=== PATIENT | male | born 1955 | race Two or more races ===

== ENCOUNTER 2025-03-16 13:38 | Outpatient (AMB) | payer MEDICARE, MEDICAID, SELFPAY ==
--- NOTE | 2025-03-16 13:41 | A.OFFPC_ITS ---
Vital Signs 03/16/25 13:42 03/16/25 14:28 Height 5 ft 10 in Weight 263 lb 6 oz BMI 37.8 BP 142/78 H 120/70 Blood Pressure Location Rt brachial Lt brachial Position Sitting Sitting Pulse 65 Pulse Source Pulse Oximeter Temp 97.0 F Temp Source Temporal Artery Scan Pulse Oximetry (%) 98 Oxygen Delivery Method Room Air Intake Visit Reasons: establish care Accompanied by: Daughter Allergies No Known Allergies Allergy (Verified 03/16/25 13:52) Medication List - Last Reconciled 03/16/25 by Valery Moreno PA-C amlodipine-atorvastatin 10-40 mg 1 tab PO DAILY aspirin (Adult Aspirin Regimen) 81 mg PO DAILY omeprazole 20 mg PO BID rosuvastatin 5 mg PO DAILY tadalafil (Cialis) 10 mg PO DAILY PRN tamsulosin 0.4 mg PO DAILY valsartan 40 mg PO DAILY Tobacco use date assessed: 03/16/25 Fall risk assessment: 2 + Falls in past year Last assessed Fall Risk: 03/16/25 Dental Screening Dental Screen Date: 03/16/25 Did you have a dental visit in the last 12 months?: No Did you have a dental problem in the last 6 months where you did not have access to dental care?: No Was dental information given to patient?: Patient has dentist HPI establish care HPI Details 70-year-old man coming to the office wit h the 1st time. Presenting for a comprehensive evaluation of multiple chronic conditions and management of current symptoms.The patient has a history of high blood pressure, managed with medication. No recent hospitalizations or complications reported. The patient is under psychiatric care for anxiety and depression, with medications prescribed by a psychiatrist. He reports feeling overwhelmed due to recent family losses and personal stressors. The patient is taking tamsulosin and tadalafil for prostate management and has regular follow-ups with a urologist. The patient experiences numbness and pain in his hands, particularly at night. A nerve conduction study has been ordered to confirm the diagnosis. The patient uses a CPAP machine for sleep apnea management. No recent changes in symptoms or equipment reported. The patient experiences morning cough and phlegm, likely due to acid reflux. He is advised to take omeprazole twice daily to manage symptoms. He was previously seen by his last PCP 5 months ago and has a urology appointment coming up in April. He also follows with orthopedics in his seeing them in March for neck and back pain. He currently uses Tylenol and Voltaren as well as heating pads for pain relief of the neck and back pain. He also [place] [facility] [place] His pharmacy is [facility] Surgical History Hx of colonoscopy H/O hernia repair History of total knee replacement Family History Mother Hypertension Mental health disorder Father Hypertension Mental health disorder Social History Household Members: Family Housing: House Alcohol intake: current Alcohol intake frequency: a few times a week Patient Tobacco Use Status: Former Tobacco user e-Cigarette/Vaping Use: Never Used service: No Current occupational status: retired Cognitive needs: Yes (cane) Hearing needs: No Vision needs: Yes Questionnaire PHQ-9 Over the last 2 weeks, how often have you been bothered by any of the following problems? 1. Little interest or pleasure in doing things: nearly every day 2. Feeling down, depressed, or hopeless: nearly every day 3. Trouble falling or staying asleep, or sleeping too much: nearly every day 4. Feeling tired or having little energy: nearly every day 5. Poor appetite or overeating: nearly every day 6. Feeling bad about yourself - or that you are a failure or have let yourself or your family down: more than half the days 7. Trouble concentrating on things, such as reading the newspaper or watching television: nearly every day 8. Moving or speaking so slowly that other people could have noticed. Or the opposite - being so fidgety or restless that you have been moving around a lot more than usual: nearly every day 9. Thoughts that you would be better off or of hurting yourself in some way: not at all Total score: 23 Depression Screening Interpretation: Positive Depression Screening Follow-up: Existing condition and In treatment Depression Screening Done: Yes 53994 - PHQ-9 Billing: Yes Source: Developed by Drs. Jae Gamble, Thelma Dunham, Cesar Andrew and colleagues, with an educational ralph from [employer]. Thrive Questionnaire Date Thrive assessed: 03/16/25 I am a: Patient What is your living situation today?: I have a steady place to live Within the past 12 months, did the food you bought not last and you didn't have the money to get more?: Never true Within the past 12 months, did you worry whether your food would run out before you got money to buy more?: Never true Do you have trouble paying for medicines?: No Do you have trouble getting transportation to medical appointments?: No Do you have trouble paying your heating and electricity bill?: No Do you have trouble taking care of your child, family member or friend?: No Do you have trouble with day-to-day activities such as bathing, preparing meals, shopping, managing finances, etc.?: No Are you currently unemployed and looking for a job?: No Are you interested in more education?: No Currently or been in a relationship where the following occur: No concerns reported THRIVE Score: 0 AUDIT C Alcohol Use Questionnaire (AUDIT-C) 1. How often do you have a drink containing alcohol?: 2-3 times a week 2. How many drinks containing alcohol do you have on a typical day when you are drinking?: 1 or 2 3. How often do you have six or more drinks on one occasion?: Never Total Score: 3 Score Reviewed/Action Taken: Yes KADE-7 AMB Questionnaire KADE-7 Date KADE - 7 assessed: 03/16/25 Feeling nervous, anxious, or on edge: 3 = Nearly every day Not being able to stop or control worryin = Nearly every day Worrying too much about different things: 3 = Nearly every day Trouble relaxin = Nearly every day Being so restless that it is hard to sit still: 3 = Nearly every day Becoming easily annoyed or irritable: 3 = Nearly every day Feeling afraid as if something awful might happen: 3 = Nearly every day Total KADE-7 score (0-4 normal; 5-9 mild; 10-14 moderate; 15-21 severe): 21 Source: Developed by Drs. Jae Gamble, Thelma Dunham, Cesar Andrew and colleagues, with an educational ralph from [employer]. KADE-7 Assessment Billing KADE-7 Assessment Tool: KADE-7 Assessment 54720 (See's a psychiatrist ) Review of Systems Const Denies chills, Denies fever(s), Denies headache(s) and Denies poor appetite Eyes Reports no additional complaints ENT Denies dizziness and Denies headache(s) Card Denies chest pain, Denies syncope, Denies edema, Denies irregular heart rhythm, Denies lightheadedness and Denies dyspnea Resp Reports cough and Denies dyspnea GI Denies abdominal pain, Denies diarrhea, Denies nausea and Denies vomiting Reports no additional complaints Musc Details: neck and back pain Reports no additional complaints and Denies abnormal gait Skin/Breast Reports system reviewed and no additional complaints, except as documented Neuro Denies abnormal gait, Denies dizziness, Denies syncope and Denies headache(s) Psych Reports no additional complaints Physical exam (Primary Care) Vital Signs: Last Vital Signs Temp 97.0 F 03/16/25 13:42 Pulse 65 03/16/25 13:42 BP 120/70 03/16/25 14:28 Pulse Ox 98 03/16/25 13:42 Oxygen Delivery Method Room Air 03/16/25 13:42 BMI result Body Mass Index 37.8 Tobacco/Smoking Status: Tobacco use Status Tobacco use date assessed 03/16/25 03/16/25 13:46 Patient Tobacco Use Status Former Tobacco user 03/16/25 13:48 e-Cigarette/Vaping Use Never Used 03/16/25 13:48 PHQ-9: PHQ-9 Score PHQ-9: Total score 23 03/16/25 14:09 Depression Screening Interpretation: Positive Depression Screening Follow-up: Existing condition and In treatment Thrive Assessment: Date of Thrive Assessment Date Thrive assessed 03/16/25 03/16/25 13:47 Currently or been in a relationship where the following occur: No concerns reported Const General: cooperative, healthy appearing, comfortable and no acute distress Orientation/consciousness: patient oriented x3 HENMT Head: Yes normocephalic Ears: hearing grossly normal bilaterally General nose exam: Normal external nose present Eyes General: appearance normal, both eyes and all related structures Conjunctivae: conjunctivae normal Neck Neck: Yes full ROM and Yes no lymphadenopathy Resp Effort & Inspection: normal respiratory effort Auscultation: clear to auscultation bilaterally, no crackles, no rales, no rhonchi and no wheezes Cardio Rate: regular rate Rhythm: regular rhythm Skin General skin exam: no rashes or lesions noted Neuro General: patient oriented x3 Gait exam (Neuro): Normal gait present Extrem General: Yes normal to inspection, Yes full ROM and No edema Psych Affect: normal affect Attitude: cooperative Insight: Good insight present (Psych) Judgement: Good judgement present (Psych) Coding Level of Care Code New Pt Level 4 (15719) Diagnoses Anxiety F41.9 Depression F32.A Hypertension I10 Nail deformity L60.8 BPH (benign prostatic hyperplasia) N40.0 Back pain M54.9 Neck pain M54.2 Obstructive sleep apnea G47.33 Numbness and tingling in both hands R20.0; R20.2 Obesity (BMI 30-39.9) E66.9 GERD (gastroesophageal reflux disease) K21.9 Additional Codes KADE-7 Assessment Billing - KADE-7 Assessment Tool: KADE-7 Assessment 55167 ([id number]) PHQ-9 - 68756 - PHQ-9 Billing: Yes ([id number]) Assessment & Plan Assessment & Plan (1) Anxiety: Comment: Dr. Moore Code(s): F41.9 - Anxiety disorder, unspecified Category: Medical Plan: Patient is currently following with a psychiatrist and a counselor for management of his anxiety and depression. He is on multiple different medications for these concerns and is unsure of the names. Plan to reach out to the pharmacy to obtain the medications (2) Depression: Code(s): F32.A - Depression, unspecified Category: Medical Plan: See above (3) Hypertension: Code(s): I10 - Essential (primary) hypertension Category: Medical Plan: Continue on current blood pressure medication. Avoid salt intake and encourage healthy diet and regular exercise. We will reach out to the pharmacy to confirm the doses and prescriptions he is on (4) Nail deformity: Code(s): L60.8 - Other nail disorders Category: Medical Plan: Patient reporting multiple nail deformities and requesting referral to Dermatology which was placed today (5) BPH (benign prostatic hyperplasia): Code(s): N40.0 - Benign prostatic hyperplasia without lower urinary tract symptoms Category: Medical Plan: Patient is currently following with Urology for BPH and on tamsulosin and tadalafil. Continue to follow with Urology (6) Back pain: Code(s): M54.9 - Dorsalgia, unspecified Category: Medical Plan: Patient complaining of back pain advised to use Tylenol and heating pads as needed for pain and follow up with Orthopedics as scheduled (7) Neck pain: Code(s): M54.2 - Cervicalgia Category: Medical Plan: Patient complaining of neck pain and is currently following with orthopedics for this concern. (8) Obstructive sleep apnea: Comment: [facility] [place] Code(s): G47.33 - Obstructive sleep apnea (adult) (pediatric) Category: Medical Plan: Uses CPAP faithfully at least 4 hours a night and benefits from this therapy. (9) Numbness and tingling in both hands: Code(s): R20.0 - Anesthesia of skin; R20.2 - Paresthesia of skin Category: Medical Plan: Patient reporting numbness and tingling in bilateral hands and pain in bilateral thumbs. Plan to obtain upper extremity EMG bilaterally to rule out carpal tunnel. Recommended use of wrist splints at nighttime (10) Obesity (BMI 30-39.9): Code(s): E66.9 - Obesity, unspecified Category: Medical Plan: Healthy diet and regular exercise is encouraged. (11) GERD (gastroesophageal reflux disease): Code(s): K21.9 - Gastro-esophageal reflux disease without esophagitis Category: Medical Plan: Avoid trigger foods such as citrus, tomato products, soda, caffeine, spicy foods and other foods that may be irritating to your stomach. Avoid laying flat 3-4 hours after eating and elevate the head of the bed 30 degrees to prevent acid from moving into the esophagus. Patient continues to have acid reflux symptoms at nighttime plan to increase omeprazole to 20 mg b.i.d. Plan The patient will continue management of essential hypertension with current medications, and blood pressure will be monitored regularly. For anxiety and depression, the patient will maintain psychiatric follow-ups and consider medication adjustments as needed. The management of benign prostatic hyperplasia will continue with tamsulosin and tadalafil, with regular urology consultations. For knee replacement follow-up, the patient will continue orthopedic consultations and address neck pain with child care development specialist. A nerve conduction study is ordered to evaluate carpal tunnel syndrome, and wrist splints are recommended for nighttime use. Sleep apnea management will continue with CPAP therapy. Gastroesophageal reflux disease will be managed with omeprazole, taken twice daily. The patient will receive a referral to a sales expert for annual evaluation and will be advised on lifestyle modifications to reduce acid reflux symptoms. This note was constructed using voice recognition software. While every effort has been made to ensure accuracy and centerless grinder set up operator, still areas may have been included sometimes these areas may affect the content or meeting of the given symptoms. Total time spent caring for the patient today was 30 minutes. This includes time spent before the visit reviewing the chart, time spent during the visit, and time spent after the visit and documentation. Patient was informed and verbally consented to the use of an ambient scribe for clinic note documentation during this visit. Orders: Orders NE electromyogram (EMG) 03/16/25 R20.0 - Anesthesia of skin, R20.2 - Paresthesia of skin Lipid Panel 03/16/25 Z13.220 - Encounter for screening for lipoid disorders PSA, Ultra Sensitive 03/16/25 N40.0 - Benign prostatic hyperplasia without lower urinary tract symptoms, Z00.00 - Encounter for general adult medical examination without abnormal findings Vitamin B12 and Folate 03/16/25 E66.9 - Obesity, unspecified, Z13.21 - Encounter for screening for nutritional disorder NE nerve conduction velocity 03/16/25 R20.0 - Anesthesia of skin, R20.2 - Paresthesia of skin Complete Blood Count Auto Diff 03/16/25 E66.9 - Obesity, unspecified, Z00.00 - Encounter for general adult medical examination without abnormal findings Comprehensive Met. Panel 03/16/25 E66.9 - Obesity, unspecified, Z00.00 - Encounter for general adult medical examination without abnormal findings Vitamin D 25-OH Total 03/16/25 E66.9 - Obesity, unspecified, Z13.21 - Encounter for screening for nutritional disorder TSH reflex Free T4 03/16/25 Z13.29 - Encounter for screening for other suspected endocrine disorder Referrals Chiropractic Referral M54.2 - Cervicalgia, M54.9 - Dorsalgia, unspecified Optometry Referral I10 - Essential (primary) hypertension, Z00.00 - Encounter for general adult medical examination without abnormal findings Dermatology Referral L60.8 - Other nail disorders Medications: New omeprazole 20 mg PO BID 60 caps 0RF
[2025-03-16 13:42] VITALS: BP 142/78; PULSE 65; TEMP 36.1; O2SAT 98; BMI 37.8
--- OUTSIDE RECORDS SUMMARY | 2025-03-16 13:49 | XMS_ITS ---
Author Name [facility] Organization Unknown Encounters Encounter Type Encounter Reason Primary Diagnosis Location Date Ambulatory Encounter for immunization Counts include 234 beds at the [facility] 10/23/2021 Care Team Organization Name Specialty Phone Email Start Date End Da te [facility] 05/28/2022 [facility] Gudelia Elizabeth [facility] 202103/14/2024 [facility] GUDELIA ELIZABETH Primary Care 202110/23/2021
--- OUTSIDE RECORDS SUMMARY | 2025-03-16 13:49 | XMS_ITS | Encounter Summary ---
Author Organization [facility] Address [address] [place] [address] Care Team Providers Care Pest Control Specialist Name Role Phone Lalita Wallace NP Primary Care Provider [phone] Encounter Details Date Type Department Care Team (Late st Contact Info) Description 08/23/2024 Lab Requisition [facility] - Main Lab [address] [facility] [place] [phone] Manny Burger PA [address] [place] [phone] Benign essential microscopic hematuria Social History Tobacco Use Types Packs/Day Years Used Date Smoking Tobacco: Never Assessed Sex and Gender Information Value Date Recorded Sex Assigned at Male 06/30/2024 12:15 PM EST Legal Sex Male 11:01 AM EDT Gender Identity Male 06/30/2024 12:15 PM EST Sexual Orientation Straight 06/30/2024 12 :15 PM EST documented as of this encounter Plan of Treatment Not on file documented as of this encounter Procedures Procedure Name Priority Date/Time Associated Diagnosis Comments AP OUTSIDE CONSULT Routine 08/22/2024 12 :00 AM EST Benign essential microscopic hematuria documented in this encounter Results * Anatomic pathology outside consult (08/22/2024 12:00 AM EST) Final Diagnosis A. Urine, Voided, ([id number]): Negative for high grade urothelial carcinoma. 09/05/2024 2:44 PM EST [facility] Clinical Information Benign essential microscopic hematuria R31.1 Urine cytology with reflex [facility] ([facility]) 09/05/2024 2:44 PM EST [facility] Gross Description A. Urine, Voided, ([id number]): Received is one ThinPrep slide for cytology. 09/05/2024 2:44 PM EST [facility] Disclaimer Unless otherwise specified, all tissue is 10% NB formalin fixed and paraffin embedded. Technical pathology services provided by [facility] at [address], [place] [address] (CLIA #[id number]/Sa fany Arreola MD, Small Business Sales Representative) 09/05/2024 2:44 PM EST [facility] Tissue Urine specimen from urethra / Unknown 08/22/2024 08/23/2024 4:00 PM EST us Manny [facility] PATHOLOGY ORDERAB LES Final Result [facility] [address] [place] [address], documented in this encounter Visit Diagnoses Diagnosis Benign essential microscopic hematuria documented in this encounter Care Teams Pest Control Specialist Relationship Specialty Start Date End Date Lalita Wallace NP [address] [place] [address] [place] [address] PCP - General 06/05/23 documented as of this encounter
--- OUTSIDE RECORDS SUMMARY | 2025-03-16 13:49 | XMS_ITS | Clinical Summary ---
Author Organization [facility] Address [address] [place] [address] Care Team Providers Care Lump Receiver Name Role Phone Anais Dave APRN Primary Care Provider [phone] Allergies No known active allergies Social History Tobacco Use Types Packs/Day Years Used Date Smoking Tobacco: Never Assessed Sex and Gender Information Value Date Recorded Sex Assigned at Not on file Legal Sex Male 1:30 PM EDT Gender Identity Not on file Sexual Orientation Not on file Plan of Treatment Health Maintenance Due Date Last Done Comments Hepatitis C Virus Screening 1955 DTaP/Tdap/Td Vaccines (1 - Tdap) 1974 Colonoscopy 02/19/2000 Pneumococcal Vaccines 50+ (1 of 1 - PCV) 2005 Zoster (Shingles) Vaccine (1 of 2) 2005 COVID-19 Vaccine ( - 2023-2 5 season) 2024 Influenza Vaccine 02/24/2025 RSV Vaccine 60 years and old er and Patients (1 - 1-dose 75+ series) 2030 Hepatitis B Vaccines Aged Out No long er eligible based on patient's age to complete this topic [place] [address] Care Teams Lump Receiver Relationship Specialty Start Date End Date Anais Dave APRN [address] [facility] [address] [place] [address] PCP - General 03/11/16
--- OUTSIDE RECORDS SUMMARY | 2025-03-16 13:49 | XMS_ITS | Clinical Summary ---
Author Organization [facility] Address [address] [place] [address] Care Team Providers Care [employer] Name Role Phone Unavailable Primary Care Provider Unavailabl e Allergies Active Allergy Reactions Criticality Noted Date Comments No Known Allergies 01/20/2014 Medications biotin 5 mg capsule Take by mouth. Activ e DOCOSAHEXANOIC ACID/EPA (FISH OIL ORAL) Take by mouth. Activ e lactulose 20 gram/30 mL oral solution Take by mouth. 8 Active multivitamin (THERAGRAN) tablet Take by mouth. Activ e diclofenac sodium (VOLTAREN) 1 % gelIndications:C hronic knee pain, unspecified laterality Apply 2 g topically 4 (four) times a day. 100 g 2 8 Active fluticasone furoate-vilanter oL (Breo Ellipta) 100-25 mcg/dose blister with device inhaler Inhale 1 inhalations daily. 60 each 11 0 Active fluticasone propionate (FLONASE) 50 mcg/actuation nasal spray INSTILL 2 SPRAYS IN EACH NOSTRIL ONCE A DAY 16 g 2 0 Active tamsulosin (FLOMAX) capsule TAKE ONE CAPSULE (0.4MG TOTAL) BY MOUTH EVERY DAY 1/2 HOUR FOLLOWING THE SAME MEAL EACH DAY. 90 capsule 3 0 Active Linzess 145 mcg capsule capsuleIndicatio ns:Constipation, unspecified constipation type TAKE ONE CAPSULE (145MCG TOTAL) BY MOUTH DAILY. 90 capsule 1 0 Active amlodipine-olmes laurie (ARNULFO) 10-40 mg per tabletIndication s:Essential hypertension Take 1 tablet by mouth daily. 90 tablet 1 0 Active Active Problems Problem Noted Date Diagnosed Date Trigger finger, left middle finger 02/10/2020 Assessment & Plan (02/10/2020 9:35 AM EDT): He is having left hand middle finger episodes of tightness and the finger getting stuck. I have referred him to orthopedics for possible steroid injection. Medication side effect 02/10/2020 Myalgia 02/10/2020 Obstructive sleep apnea 10/25/2019 Assessment & Plan (10/25/2019 4:14 PM EDT): The patient is not interested in treating his sleep apnea. He did not tolerate CPAP. Recommendations: 1. Follow-up on an as-needed basis 2. Obtain fluticasone nasal spray from his PCP 3. I am available to him in the future if he decides he would like to treat his sleep apnea Smoking 04/24/2019 Assessment & Plan (04/24/2019 8:36 PM EDT): Patient encouraged to quit tobacco use. More than 6 minutes of this visit was spent in smoking cessation counseling. We discussed the health risks of continued smoking as well as several methods useful in quitting. Tobacco replacement products were discussed. Wheezing 04/24/2019 Assessment & Plan (04/24/2019 8:37 PM EDT): Albuterol MDI given encourage patient to take 2 puffs every 4 hours as needed for cough wheezing or shortness of breath. Skin mole 04/24/2019 Assessment & Plan (04/24/2019 8:37 PM EDT): Skin mole on left facial cheek. Referral to Derm given Acute bilateral low back pain without sciatica 0 04/24/2019 Assessment & Plan (04/24/2019 8:44 PM EDT): I have encouraged him to stretch prior to activities. I have given him handouts on back stretches and exercises. He got a referral to PT from the orthopedic. I have encouraged him to use either Motrin or Tylenol for discomfort. Applying heat may help with discomfort as well BMI 38.0-38.9,adult 06/02/2018 Mixed hyperlipidemia 06/02/2018 Assessment & Plan (02/10/2020 9:37 AM EDT): Lipid abnormalities are improving with treatment. Patient complaining of side effects of myalgia from Lipitor. I have discontinued this and started him on Crestor 5 mg at his request. We will recheck his lipid labs in 4 months. Lipids will be reassessed 4 months. Assessment & Plan (04/24/2019 8:37 PM EDT): Lipid medications refilled. I have ordered repeat labs. Heartburn 06/02/2018 Gastroesophageal reflux disease 06/02/2018 Osteoarthritis of knee 02/16/2018 S/P total knee arthroplasty, right 02/15/2018 Acquired spondylolisthesis 10/30/2014 Spinal stenosis of lumbar region 10/30/2014 Benign prostatic hyperplasia 05/11/2014 Assessment & Plan (04/24/2019 8:37 PM EDT): Medications refilled Impotence of organic origin 10/04/2012 Resolved Problems Problem Noted Date Diagnosed Date Resolved Date Upper respiratory infection with cough and congestion 06/02/2018 11/15/2024 Pre-operative exam 02/16/2018 Assessment & Plan (02/16/2018 8:44 PM EDT): Pt is considered low risk based on well controlled HTN and HLD, ekg within normal limits, no signs of ischemia, NSR. He is cleared for surgery Urinary symptom or sign 10/04/201210/26 Immunizations Immunization Administration Dates Next Due COVID-19 MRNA NEGRA (PFIZER) 10/23/2021 COVID-19 mRNA (PFIZER) 12/13/2020,11/22/2020 Influenza Vaccine 65y and older 06/25/2020 Meningococcal MCV4P 01/21/2019 Pneumococcal Conjugate PCV-13 06/25/2020 Pneumococcal Polysaccharide PCV-23 11/28/2015 Tdap 07/13/2014 Family History Medical History Relation Comments Heart disease Father Heart disease Mother Relation Status Comments Father Mother Social History Tobacco Use Types Packs/Day Years Used Date Smoking Tobacco: Former Smokeless Tobacco: Never Alcohol Use Standard Drinks/Week Comments Yes 0 (1 standard drink = 0.6 oz pur e alcohol) Sex and Gender Information Value Date Recorded Sex Assigned at Not on file Legal Sex Male 11:11 AM EST Gender Identity Not on file Sexual Orientation Not on file Last Filed Vital Signs Vital Sign Reading Time Taken Comments Blood Pressure 125/76 06/25/2020 11:49 AM EST Pulse 66 06/25/2020 11:49 AM EST Temperature 36.4 C (97.5 F) 06/25/2020 11:49 AM EST Respiratory Rate 20 06/25/2020 11:4 9 AM EST Oxygen Saturation 99% 06/25/2020 11: 49 AM EST Inhaled Oxygen Concentration - - Weight 114 kg (250 lb 4.8 oz) 0 11:49 AM EST with shoes Height 174 cm (5' 8.5 ) 06/25/2020 11:4 9 AM EST with shoes Body Mass Index 37.5 06/25/2020 11:49 AM EST Plan of Treatment Health Maintenance Due Date Last Done Comments CT Colonography 1955 FIT-DNA (Cologuard) 1955 FIT 1955 FOBT 1955 Flex Sigmoidoscopy - 5y 1955 HIV Screening 1955 Zoster Vaccines (1 of 2) 2005 Colonoscopy 08/08/2023 08/08/2013 (Done (Data in HDA)) Colorectal Cancer Screening 08/08/2023 COVID-19 Vaccine (4 - 2023-2 5 season) 2024 10/23/2021, 12/13/2020, 11/22/2020 DTaP,Tdap,and Td Vaccines (2 - Td or Tdap) 07/13/2024 07/13/2014 Influenza Vaccine (#1) 2025 06/25/2020 Pneumococcal Vaccine, 50+ Years (3 of 3 - PCV20 or PCV21) 06/25/2025 06/25/2020, 11/28/2015 Meningococcal Vaccine Aged Out 01/21/2019 No joel damian eligible based on patient's age to complete this topic HPV Vaccines Aged Out No longer eligi ble based on patient's age to complete this topic Hepatitis A Vaccines Aged Out No long er eligible based on patient's age to complete this topic Medical Devices Implanted Type Area Sediment Remediation Consultant Device Identifier Shelf Expiration Date Model / Serial / Lot Simplex P W/Tobramycin Bone Cement , Full Dose (Pk/10) - [id number] Implanted: at [facility] (Quantity not on file) [employer]. Right: Knee [facility] [employer] 07/26/2019 6197-9-0 10 / / [id number] Sz 6, 11mm Triathlon Ps Tibial Insert X3 - [id number] Implanted: at [facility] (Quantity not on file) Knee Articular Insert [facility] 04/14/2022 5532-G-6 11 / / [id number] Sz 6 Triathlon Ts Tibial Baseplate - [id number] Implanted: at [facility] (Quantity not on file) Knee Implants, Repairs, Reconstruction Right: Knee [facility] [employer] 5521-B-6 00 / / Sz 6 Right Triathlon Ps Cemented Femoral Component - [id number] Implanted: at [facility] (Quantity not on file) Knee Implants, Repairs, Reconstruction Right: Knee [facility] 5515-F-6 02 / / Insurance MEDICAID [id number] Advance Directives For more information, please contact: [phone] Documents on File Type Date Recorded Patient Nurse Head Expl anation Advance Directives 02/25/2018 1:05 PM * Full Code (Latest Code Status on File) Date Activated Date Inactivated Comments 02/15/2018 2:51 PM 02/23/2018 9:21 AM Question Answer Comments Code Status: Not discussed with patient and/o r caregiver
[2025-03-16 14:28] VITALS: BP 120/70
== END 2025-03-16 14:35 | disposition home or self-care (01) ==
DX: I10 Essential (primary) hypertension (principal); F41.9 Anxiety disorder, unspecified; Z68.37 Body mass index [BMI] 37.0-37.9, adult; E66.9 Obesity, unspecified; F32.A Depression, unspecified; L60.8 Other nail disorders; N40.0 Benign prostatic hyperplasia without lower urinary tract symptoms; M54.9 Dorsalgia, unspecified; M54.2 Cervicalgia; G47.33 Obstructive sleep apnea (adult) (pediatric); R20.0 Anesthesia of skin; R20.2 Paresthesia of skin

== ENCOUNTER → 2025-03-16 13:38 | Outpatient (BNVA) | payer MEDICARE, MEDICAID, SELFPAY | DX: F41.9 Anxiety disorder, unspecified (principal); F32.A Depression, unspecified; I10 Essential (primary) hypertension; L60.8 Other nail disorders; N40.0 Benign prostatic hyperplasia without lower urinary tract symptoms; M54.9 Dorsalgia, unspecified; M54.2 Cervicalgia; G47.33 Obstructive sleep apnea (adult) (pediatric); R20.0 Anesthesia of skin; R20.2 Paresthesia of skin; K21.9 Gastro-esophageal reflux disease without esophagitis; E66.9 Obesity, unspecified; Z68.37 Body mass index [BMI] 37.0-37.9, adult; Z71.3 Dietary counseling and surveillance; Z87.891 Personal history of nicotine dependence | CPT/HCPCS: 96127; 99202 ==

== ENCOUNTER 2025-05-15 11:04 | Outpatient (REF) | payer MEDICARE, MEDICAID, SELFPAY ==
--- NOTE | 2025-05-15 12:51 | EMG_ITS ---
Chief complaint:?Numbness and tingling in both hands Reason for referral: R20.0 Anesthesia of skin Referred by:?Valery Moreno Procedure done: Bilateral upper extremities NCS/EMG Bilateral median and ulnar motor studies were performed. Bilateral median mixed sensory and bilateral radial sensory studies were performed. EMG needle examination was performed. Right median mixed distal latency was slightly prolonged with normal conduction velocity. Otherwise no abnormality of nerve conduction study was noted. Needle examination revealed long duration polyphasic potential in left lower paraspinal with decreased recruitment and long duration potential in left triceps and biceps. Impression: 1. Mild right median neuropathy across carpal tunnel 2. Chronic left mid to lower cervical radiculopathy MTDD
== END 2025-05-15 11:05 | disposition home or self-care (01) ==
LOC: HO.NEURO 11:04
DX: R20.0 Anesthesia of skin (principal); R20.2 Paresthesia of skin
CPT/HCPCS: 95886; 95913

== ENCOUNTER → 2025-05-15 12:51 | Outpatient (BNV) | payer MEDICARE, MEDICAID, SELFPAY | PROVIDERS: Visit Provider Psychiatry & Neurology Neurology | DX: G56.01 Carpal tunnel syndrome, right upper limb (principal) | CPT/HCPCS: 95886; 95913 ==

== ENCOUNTER 2025-06-15 14:17 | Outpatient (AMB) | payer MEDICARE, MEDICAID, SELFPAY ==
[2025-06-15 14:19] VITALS: BP 120/80; PULSE 67; TEMP 36.7; O2SAT 98; BMI 37.2
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
--- OUTSIDE RECORDS SUMMARY | 2025-06-15 19:44 | XMS_ITS | Continuity of Care Document ---
Author Organization [place] - [facility], [facility] Address [address] [place] [address] Care Team Providers Care Automation Machine Builder Name Role Phone [facility]Y PORTILL[facility] Primary Care Provider Assessment Encounter Date Assessment Date Assessment LastModified by Organization Details LastModified Time 05/01/2025 05/01/2025 70-year-old male presents for reevaluation of nasal congestion. Based on history he is experiencing some dependent congestion. He does however have significant turbinate hypertrophy and possible septal deviation though exam is somewhat obscured by turbinates. Recommended a trial of Atrovent. Will follow-up after for review and further planning. If not beneficial could consider turbinate reduction. All questions were answered. marisa Not available 05/01/2025 13:36:46 Plan of Treatment Reminders Order Date Submit Date Provider Last Modified By Organization Details Last Modified Time Details Appointments Establish ed 15 2024 03:30P M HUY MAHAN MD Not available Not available Not available Lab None recorded. Referral None recorded. Procedures None recorded. Surgeries None recorded. Imaging None recorded. Medication Orders ipratropi um bromide 42 mcg (0.06 %) nasal spray 2024 025 [facility] Harry Portillo, [address] [place], [address], 05/01/2025 13:38:34 Patient TargetsNo targets recorded. Patient InstructionsNo instructions recorded. Reason for Referral None Reported. Problems Name Problem SNOMED Code Status Onset Date Resolution Date Notes Provider Name and Address Organization Details Recorded Time Chronic rhinitis 85364077 Active 2024 CY CHAPA PA-C [address] [facility], E [facility], [place], [address], [facility] [place] 13:36:52 Sensorineur al hearing loss of bilateral ears 639860155 Active 2024 CRISTINA BELLA [address] [facility],[place] [address], [place], [address], [facility] [place] 15:42:08 Impacted cerumen in right ear 6112402201753 103 Active 2024 HUY MAHAN MD [address] [facility],[place] [address], [place], [address], [facility] [place] 08:30:51 Nasal congestion 09699136 Active 2024 CY CHAPA PA-C [address] [facility],[place] [address], [place], [address], [facility] 13:36:50 Allergic rhinitis 54399303 Active 2024 HUY MAHAN MD [address] [address], [place], [address], [facility] - [facility] [place] 08:30:59 Problem Notes None recorded. Procedures Surgical History Date Name Laterality Status Provider Name and Address Organization Details Recorded Time Comp Audio with Tymps - 17156 & 63974 completed CRISTINA BELLA [address] [facility],[address], [address], [facility] - [facility] [place] 10/28/2024 15:42:02 Cerumen removal with microscope right completed HUY MAHAN MD 100 [facility],[address], [address], [facility] 10/29/2024 08:31:21 Imaging Results None recorded. Procedure Notes None recorded. Medical Equipment None Reported. Allergies No known drug allergies Medications Name Sig Start Date Stop Date Status Note LastModified by Organization Details LastModified Time budesonide 32 mcg/actuati on nasal spray Take 2 sprays every day by nasal route for 90 days. 2024 active Not Available Not Available Not Avai lable azithromyci n 250 mg tablet TAKE 2 TABLETS BY MOUTH ONCE DAILY FOR 1 DAY THEN 1 TABLET ONCE DAILY FOR 4 DAYS. 10/28 completed Not Available Not Available Not Available ipratropium bromide 42 mcg (0.06 %) nasal spray [place] 2 sprays 3 times a day by intranasa l route. 2024 active Not Available Not Available Not Avai lable fluticasone propionate 50 mcg/actuati on nasal spray,suspe nsion SPRAY 1 SPRAY (50 MCG) IN EACH NOSTRIL BY INTRANASA L ROUTE 2 TIMES PER DAY active Not Available Not Available No t Available Vitals None Recorded Social History None recorded. Functional Status None recorded. Mental Status None recorded. Family History Nothing Reported. Medical History Condition Response Allergies/Hayfever N Heart Problems N Anxiety N Tonsil Infections N Emphysema N Migraines N Thyroid Problems N Glaucoma N Depression N COPD N Developmental Delay N Nasal or Sinus Problems N Anemia N Immune System Disorder N Anesthesia Complications N Heart Attack (OR) N Other Skin Condition N Diabetes N Rhinitis N Bleeding Disorder N Food Allergy N Arthritis Y Hearing Loss N Hyperlipidemia N Cancer N Stroke N Dementia N Nasal polyps N Asthma N High Cholesterol N Sleep Disorder N GERD/Reflux N Liver Disease N Headaches N Fibromyalgia N Hypertension Y Speech Delay N Kidney Disease N Past Encounters Encounter ID Performer Location Encounter Start Date Encounter Closed Date Diagnosis/Indication Diagnosis SNOMED-CT Code Diagnosis ICD10 Code Diagnosis IMO Codes Diagnosis Note [id number] CY CHAPA PA-C [facility] [address] [address] 05/01/2025 13:05:19 05/01/2025 13:32:08 Nasal congestion 45933334 R09.81 Chronic rhinitis 4104001 6 J31.0 Health Concerns Section Related Observation LastModified by Organization Re potter LastModified Time None Recorded Concern Status LastModified by Organization Details LastModified Time None Recorded Payers Encounter Date Sequence Insurance Name Policy Number Policy Schuler Covered Member ID Schuler Member ID Guarantor Name 05/01/2025 1 [facility] - DUAL ELIGIBLE - [facility] (MEDICARE REPLACEMENT/A DVANTAGE - HMO) Jt Goodrich [id number] Jt Goodrich Notes Date Note Type Note Provider Name and Address Organization Details Recorded Time 05/01/2025 text/html ROS as noted in the HPI 70-year-old male presents for reevaluation of nasal congestion. He continues to use budesonide but has noticed worsening of nasal congestion. He has a CPAP machine and states the nasal congestion mostly bothers him at night. He states he will lie on one side and it will become blocked and when he rolls over that side becomes blocked. HUY MAHAN MD [address] [place] [address], [address], [facility] 05/01/2025 14:00:04
--- OUTSIDE RECORDS SUMMARY | 2025-06-15 19:44 | XMS_ITS | Encounter Summary ---
Author Organization [facility] Address [address] [place] [address] Care Team Providers Care Svp Business Development Name Role Phone Lalita Wallace NP Primary Care Provider [phone] Encounter Details Date Type Department Care Team (Late st Contact Info) Description 08/23/2024 Lab Requisition [facility] - Main Lab [address] [facility] [place] [phone] Manny Burger PA [address] [place] [phone] Benign essential microscopic hematuria Social History Tobacco [...] AM EST) Final Diagnosis A. Urine, Voided, ([id number]): Negative for high grade urothelial carcinoma. 09/05/2024 2:44 PM EST [facility] Clinical Information Benign essential microscopic hematuria R31.1 Urine cytology with reflex [facility] ([facility]) 09/05/2024 2:44 PM EST [facility] Gross Description A. Urine, Voided, ([id number]): Received is one ThinPrep slide for cytology. 09/05/2024 2:44 PM EST [facility] Disclaimer Unless otherwise specified, all tissue is 10% NB formalin fixed and paraffin embedded. Technical pathology services provided by [facility] at [address], [place] [address] (CLIA #[id number]/Sa fany Arreola MD, Bonding Equipment Operator) 09/05/2024 2:44 PM EST [facility] Tissue Urine specimen from urethra / Unknown 08/22/2024 08/23/2024 4:00 PM EST us Manny [facility] PATHOLOGY ORDERAB LES Final Result [facility] [address] [place] [address], documented in this encounter Visit Diagnoses Diagnosis Benign essential microscopic hematuria documented in this encounter Care Teams Svp Business Development Relationship Specialty Start Date End Date Lalita Wallace NP [address] [place] [address] [place] [address] PCP - General 06/05/23 documented as of this encounter
--- OUTSIDE RECORDS SUMMARY | 2025-06-15 19:44 | XMS_ITS | Clinical Summary ---
Author Organization [facility] Address [address] [place] [address] Care Team Providers Care Director Marketing Analytics Name Role Phone Unavailable Primary Care Provider [...] (Data in HDA)) Colorectal Cancer Screening 08/08/2023 DTaP,Tdap,and Td Vaccines (2 - Td or Tdap) 07/13/2024 07/13/2014 COVID-19 Vaccine (4 - 2024-2 6 season) 2025 10/23/2021, 12/13/2020, 11/22/2020 Influenza Vaccine (#1) 2025 06/25/2020 Pneumococcal Vaccine, [...] this topic Medical Devices Implanted Type Area Water Treatment Technician Device Identifier Shelf Expiration Date Model / Serial / Lot Simplex P W/Tobramycin Bone Cement , Full Dose (Pk/10) - [id number] Implanted: at [facility] (Quantity not on file) [employer]. Right: Knee [facility] 07/26/2019 6197-9-0 10 / / [id number] Sz 6, 11mm Triathlon Ps Tibial Insert X3 - [id number] Implanted: at [facility] (Quantity not on file) Knee Articular Insert [employer] [facility] [facility] 04/14/2022 5532-G-6 11 / / [id number] Sz 6 Triathlon Ts Tibial Baseplate - [id number] Implanted: at [facility] (Quantity not on file) Knee Implants, Repairs, Reconstruction Right: Knee [employer] 5521-B-6 00 / / Sz 6 Right Triathlon Ps Cemented Femoral Component - [id number] Implanted: at [facility] (Quantity not on file) Knee Implants, Repairs, Reconstruction Right: Knee [facility] 5515-F-6 02 / / Insurance MEDICAID HUSKY A Advance Directives For more information, please contact: [phone] Documents on File Type Date Recorded Patient Bone Char Kiln Tender Expl anation Advance Directives 02/25/2018 1:05 PM * Full Code (Latest Code Status on File) Date Activated Date Inactivated Comments 02/15/2018 2:51 PM 02/23/2018 9:21 AM Question Answer Comments Code Status: Not discussed with patient and/o r caregiver
--- OUTSIDE RECORDS SUMMARY | 2025-06-15 19:44 | XMS_ITS | Clinical Summary ---
Author Organization [facility] Address [address] [place] [address] Phone Care Team Providers Care Edging Supervisor Name Role Phone Lalita Wallace BROADCAST TRAFFIC COORDINATOR Primary Care Provider [phone] Allergies No known active allergies Medications polyethylene glycol (Golytely) 236-22.74-6.74 -5.86 gram solution Take 4L by mouth once for one dose. May substitue any PEG. Starting at 6PM the night before your procedure drink 1 8oz glasses at your own pace until you complete half of the gallon. Finish 2nd half of the gallon 5 hours before your procedure. 4000 mL 4 Active bisacodyL (DULCOLAX) 5 mg EC tablet Take 2 tablets by mouth right before beginning bowel prep. See instructions provided by the office 2 tablet 4 Active polyethylene glycol (Golytely) 236-22.74-6.74 -5.86 gram solution Take 4L by mouth once for one dose. May substitue any PEG. Starting at 6PM the night before your procedure drink 1 8oz glasses at your own pace until you complete half of the gallon. Finish 2nd half of the gallon 5 hours before your procedure. 4000 mL 5 Active bisacodyL (DULCOLAX) 5 mg EC tablet Take 2 tablets by mouth right before beginning bowel prep. See instructions provided by the office 2 tablet 5 Active amLODIPine-olme sartan (ARNULFO) 10-40 mg per tablet Take 1 tablet by mouth 1 (one) time each day. Active aspirin 81 mg EC tablet Take 1 tablet (81 mg total) by mouth 1 (one) time each day. Active fluticasone propionate (FLONASE) 50 mcg/actuation nasal spray Administer 1 spray into each nostril 1 (one) time each day. Active loratadine (CLARITIN) 10 mg tablet Take 1 tablet (10 mg total) by mouth 1 (one) time each day. Active omeprazole (PriLOSEC) [address] capsule Take 1 capsule (20 mg total) by mouth 1 (one) time each day. Active valsartan (DIOVAN) 40 mg tablet Take 1 tablet (40 mg total) by mouth 1 (one) time each day. Active magnesium, amino acid chelate, 133 mg tablet Take by mouth 2 (two) times a day. Active Active Problems Problem Noted Date Diagnosed Date Gastroesophageal reflux disease without esophagi tis 09/09/2024 HTN (hypertension) 09/09/2024 Surgical History Surgery Date Site/Laterality Comments COLONOSCOPY PROCEDURE: HISTORICAL COLONOSCOPY TOTAL KNEE ARTHROPLASTY Bilateral HERNIA REPAIR Medical History Medical History Date Comments Constipation DX:Constipation Straining with stools DX:Straini ng with stools Esophageal reflux DX:Esophageal reflux Pulmonary embolism ([facility]/HCC V24, CMS/HCC V28) Hypertension Social History Tobacco Use Types Packs/Day Years Used Date Smoking Tobacco: Former Cigarettes Smokeless Tobacco: Current Last attempted to quit: 02/25/2024 Tobacco Cessation:Ready to Q uit: Not Asked; Counseling Given: Not Answered Alcohol Use Standard Drinks/Week Comments Yes 0 (1 standard drink = 0.6 oz pur e alcohol) Interpersonal Safety Answer Date Record ed Physical Abuse Unrecognized value 09/09/2024 Verbal Abuse Unrecognized value 09/09/2024 Sex and Gender Information Value Date Recorded Sex Assigned at Male 06/30/2024 12:15 PM EST Legal Sex Male 11:01 AM EDT Gender Identity Male 06/30/2024 12:15 PM EST Sexual Orientation Straight 06/30/2024 12 :15 PM EST Obstetrics History Last Filed Vital Signs Vital Sign Reading Time Taken Comments Blood Pressure 135/85 09/09/2024 1:16 PM EST Pulse 61 09/09/2024 1:16 PM EST Temperature 36.4 C (97.6 F) 09/09/2024 11:18 AM EST Respiratory Rate 17 09/09/2024 1:16 PM EST Oxygen Saturation 97% 09/09/2024 1:16 PM EST Inhaled Oxygen Concentration - - Weight 120 kg (264 lb) 09/09/2024 11:18 AM EST Height 177.8 cm (5' 10 ) 09/09/2024 11:18 AM EST Body Mass Index 37.88 09/09/2024 11:18 AM EST Plan of Treatment Health Maintenance Due Date Last Done Comments RSV Immunization Adult Patients (1 - Risk 50-74 years 1-dose series) 2005 Zoster Vaccines (1 of 2) 2005 Abdominal Aortic Aneurysm (AAA) Screen 02/19/2024 Cholesterol Screening (Lipid Panel) 02/19/2024 Hepatitis C Screening 02/19/2024 Medicare Annual Wellness Visit 02/19/2024 Social Influencers of Health Screening 02/19/2024 DTaP,Tdap,and Td Vaccines (2 - Td or Tdap) 07/13/2024 07/13/2014 Depression Screening 07/27/2024 Hypertension/CHF/CAD Annual BMP Blood Test 09/09/2024 01/28/2018 COVID-19 Vaccine (4 - 2024-2 6 season) 2025 10/23/2021, 12/13/2020, 11/22/2020 Influenza Vaccine (#1) 2025 , 06/25/2020 Pneumococcal Vaccine: 50+ Years (3 of 3 - PCV20 or PCV21) 06/25/2025 06/25/2020, 11/28/2015 Falls Risk Assessment 09/09/2025 09/09/2024 Colorectal Cancer Screening: Colonoscopy 09/09/2027 09/09/2024 Meningococcal ACWY Vaccine Aged Out 01/21/2019 N o longer eligible based on patient's age to complete this topic HIB Vaccines Aged Out No longer eligi ble based on patient's age to complete this topic HPV Vaccines Aged Out No longer eligi ble based on patient's age to complete this topic Hepatitis A Vaccines Aged Out No long er eligible based on patient's age to complete this topic Hepatitis B Vaccines Aged Out No long er eligible based on patient's age to complete this topic IPV Vaccines Aged Out No longer eligi ble based on patient's age to complete this topic MMR Vaccines Aged Out No longer eligi ble based on patient's age to complete this topic Meningococcal B Vaccine Aged Out No l onger eligible based on patient's age to complete this topic RSV Immunization Patients Under 20 months Aged Out No longer eligible b ased on patient's age to complete this topic Varicella Vaccines Aged Out No longer eligible based on patient's age to complete this topic Procedures Procedure Name Priority Date/Time Associated Diagnosis Comments COLONOSCOPY Routine 09/09/2024 12:55 PM EST Colon cancer screening from Last 3 Months or Most Recently Relevant to Health Maintenance Results * COLONOSCOPY Anesthesia - MAC; [facility] ENDOSCOPY (09/09/2024 12:55 PM EST) Anatomical Region Laterality Modality Endoscopy 09/09/2024 11:1 2 AM EST Impressions 09/09/2024 12:57 PM EST - Hemorrhoids found on perianal exam. - Three 6 to 8 mm polyps in the descending colon and in the ascending colon, removed with a cold snare. Resected and retrieved. - The examination was otherwise normal on direct and retroflexion views. Recommendation: - - Discharge patient to home. - High fiber diet. - Continue present medications. - Await pathology results. - Repeat colonoscopy for surveillance based on pathology results. Narrative 09/09/2024 12:57 PM EST [facility] GI Patient Name: Jt Goodrich Procedure Date: 09/09/2024 11:12 AM Date of : 1955 Age: 69 Gender: Male Note Status: Finalized Attending MD: Caleb Francis DO, [id number] Procedure Date No Time: 09/09/2024 Procedure: Colonoscopy Indications: Screening for colorectal malignant neoplasm Providers: Caleb Francis DO Referring MD: Jesi Arce DNP,SAMPLE PATTERNMAKER Medicines: Monitored Anesthesia Care Complications: No immediate complications. Estimated blood loss: Minimal. Estimated Blood Loss: Estimated blood loss was minimal. Procedure: Pre-Anesthesia Assessment: - - Prior to the procedure, a History and Physical was performed, and patient medications and allergies were reviewed. The patient is competent. The risks and benefits of the procedure and the sedation options and risks were discussed with the patient. All questions were answered and informed consent was obtained. Patient identification and proposed procedure were verified by the physician, the nurse, the anesthesiologist, the machine container washer and the light technician in the pre-procedure area in the endoscopy suite. Mental Status Examination: alert and oriented. Airway Examination: normal oropharyngeal airway and neck mobility. Respiratory Examination: clear to auscultation. CV Examination: normal. Prophylactic Antibiotics: The patient does not require prophylactic antibiotics. Prior Anticoagulants: The patient has taken no anticoagulant or antiplatelet agents. ASA Grade Assessment: II - A patient with severe systemic disease. After reviewing the risks and benefits, the patient was deemed in satisfactory condition to undergo the procedure. The anesthesia plan was to use monitored anesthesia care (MAC). Immediately prior to administration of medications, the patient was re-assessed for adequacy to receive sedatives. The heart rate, respiratory rate, oxygen saturations, blood pressure, adequacy of pulmonary ventilation, and response to care were monitored throughout the procedure. The physical status of the patient was re-assessed after the procedure. After I obtained informed consent, the scope was passed under direct vision. Throughout the procedure, the patient's blood pressure, pulse, and oxygen saturations were monitored continuously. The Colonoscope was introduced through the anus and advanced to the cecum, identified by appendiceal orifice and ileocecal valve. The colonoscopy was performed without difficulty. The patient tolerated the procedure well. The quality of the bowel preparation was good. Findings: Hemorrhoids were found on perianal exam. Three sessile polyps were found in the descending colon and ascending colon. The polyps were 6 to 8 mm in size. These polyps were removed with a cold snare. Resection and retrieval were complete. Estimated blood loss was minimal. A few small-mouthed diverticula were found in the sigmoid colon and descending colon. There was no evidence of diverticular bleeding. The exam was otherwise without abnormality on direct and retroflexion views. Procedure Code(s): --- Professional --- 29966, Colonoscopy, flexible; with removal of tumor(s), polyp(s), or other lesion(s) by snare technique Diagnosis Code(s): --- Professional --- Z12.11, Encounter for screening for malignant neoplasm of colon K64.9, Unspecified hemorrhoids D12.2, Benign neoplasm of ascending colon D12.4, Benign neoplasm of descending colon CPT copyright 2020 [employer]. All rights reserved. The codes documented in this report are preliminary and upon flarer review may be revised to meet current compliance requirements. CALEB Francis DO 09/09/2024 12:57:13 PM This report has been signed electronically.Caleb Francis DO Number of Addenda: 0 Note Initiated On: 09/09/2024 11:12 AM Scope Withdrawal Time: 0 hours 10 minutes 46 seconds Scope In: 12:40:47 PM Scope Out: 12:54:34 PM Endoscopy Department at [facility] - [address] [place] [id number] Procedure Note Caleb Francis DO - 09/09/2024 [facility] GI Patient Name: Jt Goodrich Procedure Date: 09/09/2024 11:12 AM Date of : 1955 Age: 69 Gender: Male Note Status: Finalized Attending MD: Caleb Francis DO, [id number] Procedure Date No Time: 09/09/2024 Procedure: Colonoscopy Indications: Screening for colorectal malignant neoplasm Providers: Caleb Francis DO Referring MD: Jesi Arce DNP,SAMPLE PATTERNMAKER Medicines: Monitored Anesthesia Care Complications: No immediate complications. Estimated blood loss: Minimal. Estimated Blood Loss: Estimated blood loss was minimal. Procedure: Pre-Anesthesia Assessment: - - Prior to the procedure, a History and Physicalwas performed, and patient medications and allergieswere reviewed. The patient is competent. The risks and benefits of the procedure and the sedation optionsand risks were discussed with the patient. Allquestions were answered and informed consent was obtained. Patient identification and proposed procedure were verified by the physician, the nurse, the anesthesiologist, the machine container washer and thetechnician in the pre-procedure area in the endoscopy suite. Mental Status Examination: alert and oriented.Airway Examination: normal oropharyngeal airway and neck mobility. Respiratory Examination: clear to auscultation. CV Examination: normal. Prophylactic Antibiotics: The patient does not requireprophylactic antibiotics. Prior Anticoagulants: The patient has taken no anticoagulant or antiplatelet agents. ASA Grade Assessment: II - A patient with severesystemic disease. After reviewing the risks and benefits,the patient was deemed in satisfactory condition to undergo the procedure. The anesthesia plan was touse monitored anesthesia care (MAC). Immediately priorto administration of medications, the patient was re-assessed for adequacy to receive sedatives. The heart rate, respiratory rate, oxygen saturations, blood pressure, adequacy of pulmonary ventilation,and response to care were monitored throughout the procedure. The physical status of the patient was re-assessed after the procedure. After I obtained informed consent, the scope was passed under direct vision. Throughout theprocedure, the patient's blood pressure, pulse, and oxygen saturations were monitored continuously. The Colonoscope was introduced through the anus and advanced to the cecum, identified by appendiceal orifice and ileocecal valve. The colonoscopy was performed without difficulty. The patient tolerated the procedure well. The quality of the bowel preparation was good. Findings: Hemorrhoids were found on perianal exam. Three sessile polyps were found in the descending colon and ascending colon. The polyps were 6 to 8mm in size. These polyps were removed with a coldsnare. Resection and retrieval were complete. Estimatedblood loss was minimal. A few small-mouthed diverticula were found in the sigmoid colon and descending colon. There was no evidence of diverticular bleeding. The exam was otherwise without abnormality ondirect and retroflexion views. Procedure Code(s): --- Professional --- 95953, Colonoscopy, flexible; with removal of tumor(s), polyp(s), or other lesion(s) by snare technique Diagnosis Code(s): --- Professional --- Z12.11, Encounter for screening for malignantneoplasm of colon K64.9, Unspecified hemorrhoids D12.2, Benign neoplasm of ascending colon D12.4, Benign neoplasm of descending colon CPT copyright 2020 [employer]. All rights reserved. The codes documented in this report are preliminary and upon flarer reviewmay be revised to meet current compliance requirements. CALEB Francis DO 09/09/2024 12:57:13 PM This report has been signed electronically.Caleb Francis DO Number of Addenda: 0 Note Initiated On: 09/09/2024 11:12 AM Scope Withdrawal Time: 0 hours 10 minutes 46 seconds Scope In: 12:40:47 PM Scope Out: 12:54:34 PM Endoscopy Department at [facility] - [address] [place] [phone] IMPRESSION: - Hemorrhoids found on perianal exam. - Three 6 to 8 mm polyps in the descending colonand in the ascending colon, removed with a cold snare. Resected and retrieved. - The examination was otherwise normal on directand retroflexion views. Recommendation: - - Discharge patient to home. - High fiber diet. - Continue present medications. - Await pathology results. - Repeat colonoscopy for surveillance based on pathology results. Caleb Francis DO GI~PROCEDURE ORDERABLES Final Re sult from Last 3 Months or Most Recently Relevant to Health Maintenance Insurance MEDICARE ADVANTAGE GENERIC Care Teams Edging Supervisor Relationship Specialty Start Date End Date Lalita Wallace NP [address] [place] [address] [place] [address] PCP - General 06/05/23
--- OUTSIDE RECORDS SUMMARY | 2025-06-15 19:44 | XMS_ITS | Data Portability ---
Author Organization [place] [facility], Allergy Address [address] [address] Care Team Providers Care Material Coordinator Name Role Phone [facility] Primary Care Provider Assessment Encounter Date Assessment Date Assessment LastModified by Organization Details LastModified Time 10/28/2024 10/28/2024 Significantly impacted cerumen was removed on the right and tolerated well. Follow-up 6 months for ear cleaning. Audiometric testing showed a high-frequency loss. Hearing is normal in the speech frequency. Recommend repeat audiogram for subjective change or in a couple years. He has symptoms of nasal congestion and postnasal drip. Nasal exam today is unremarkable. He has been on fluticasone for many years. I recommended changing to budesonide. Could consider nasal endoscopy if no improvement at next visit. [email or web address] Not available 10/29/2024 08:30:46 05/01/2025 05/01/2025 70-year-old male presents for reevaluation [...] 42 mcg (0.06 %) nasal spray 2024 [facility], [address] [place] [address], [id number], 05/01/2025 13:38:34 budesonid e 32 mcg/actua tion nasal spray 2024 025 [facility], [address] [place] [address], [id number], 10/28/2024 15:23:30 Patient TargetsNo targets recorded. Patient InstructionsNo instructions recorded. Reason for Referral None Reported. Results Created Date Observation Date Name Description Value Unit Range Abnormal Flag Note LastModifiedBy Organization Detail LastModifiedTime 11/01/19 25 audio gram No observ ation record ed. BARCODE Not Available 2024 10:19:15 Result Notes None recorded. Problems Name Problem SNOMED Code Status Onset Date Resolution Date Notes Provider Name and Address Organization Details Recorded Time Chronic rhinitis 87436351 Active 2024 CY CHAPA PA-C [address] [address], [place], [phone], [facility] 13:36:52 Sensorineur al hearing loss of bilateral ears 880551887 Active 2024 CRISTINA BELLA [address] [address], [place], [phone], [facility] - [facility] 15:42:08 Impacted cerumen in right ear 4776656571371 103 Active 2024 HUY MAHAN MD [address] [address], [place], [phone], [facility] - [facility] 08:30:51 Nasal congestion 69531084 Active 2024 CY CHAPA PA-C [address] [address], [place], [address], [facility] - [facility] 13:36:50 Allergic rhinitis 81986471 Active 2024 HUY MAHAN MD 100 [facility],[address], [address], [facility] - [facility] 08:30:59 Problem Notes None recorded. Procedures Surgical History Date Name Laterality Status Provider Name and Address Organization Details Recorded Time Comp Audio with Tymps - 06455 & 90678 completed CRISTINA BELLA 100 [facility],[address], [address], [facility] - [facility] 10/28/2024 15:42:02 Cerumen removal with microscope right completed HUY MAHAN MD 100 [facility],[address], [address], [facility] 10/29/2024 08:31:21 Imaging Results None recorded. [...] bromide 42 mcg (0.06 %) nasal spray [place] 2 sprays 3 times a day by intranasa l route. 2024 active Not Available Not Available Not Avai lable fluticasone propionate 50 mcg/actuati on nasal spray,suspe nsion SPRAY 1 SPRAY (50 MCG) IN EACH NOSTRIL BY INTRANASA L ROUTE 2 TIMES PER DAY active Not Available Not Available No t Available Vitals Date Recorded Body height Body mass index (BMI) Body weight Provider Name and Address Organization Details Last Updated DateTime 10/28/2024 177.8 cm 38.5 kg/m2 028929.76 g Sharron Hopper [place] [facility] 10/28/2024 14:44:48 Social History None recorded. Functional Status None recorded. Mental Status None recorded. Family History Nothing Reported. Medical History Condition Response Allergies/Hayfever N Heart Problems N Anxiety N Tonsil Infections N Emphysema N Migraines N Thyroid Problems N COPD N Depression N Developmental Delay N Glaucoma N Nasal or Sinus Problems N Anemia N Immune System Disorder N Anesthesia Complications N Heart Attack (ME) N Other Skin Condition N Diabetes N Rhinitis N Bleeding Disorder N Food Allergy N Hearing Loss N Arthritis Y Hyperlipidemia N Cancer N Stroke N Dementia N Nasal polyps N Asthma N Sleep Disorder N High Cholesterol N GERD/Reflux N Liver Disease N Headaches N Fibromyalgia N Hypertension Y Speech Delay N Kidney Disease N Past Encounters Encounter ID Performer Location Encounter Start Date Encounter Closed Date Diagnosis/Indication Diagnosis SNOMED-CT Code Diagnosis ICD10 Code Diagnosis IMO Codes Diagnosis Note [id number] HUY MAHAN MD [facility] [address] [address] 10/28/2024 14:06:49 10/28/2024 16:10:42 Chronic rhinitis 78894206 J31.0 Sensorineu ral hearing loss of bilateral ears 147928763 H90.3 Audiologic al evaluation results: Right ear: Normal through 3 kHz sloping to moderately severe sensorineu ral hearing loss with excellent word recognitio n. Left ear: Normal through 2 kHz sloping to moderately severe with excellent word recognitio n. Tympanomet ry: Right Ear:Type A Left Ear:Type A Impacted c erumen in right ear [id number] 663066 H61.21 Nasal congestion 2489196 0 R09.81 Allergic rhinitis 383237 04 J30.9 [id number] CY CHAPA PA-C [facility] [address] [address] 05/01/2025 13:05:19 05/01/2025 13:32:08 Nasal congestion 46447601 R09.81 Chronic rhinitis 2287199 6 J31.0 Health Concerns Section Related Observation LastModified by Organization Detai ls LastModified Time None Recorded Concern Status LastModified by Organization Details LastModified Time None Recorded Advance Directives Directive None Recorded Payers Insurance Date Sequence Insurance Name Policy Number Policy Schuler Covered Member ID Schuler Member ID Guarantor Name 05/02/2025 1 [employer] - DUAL ELIGIBLE - [place] - [facility] (MEDICARE REPLACEMENT/A DVANTAGE - HMO) Jt Goodrich [id number] Jtmarilee Goodrich 05/02/2025 1 [facility] [place] - [place] (MEDIC[place]/A DVANTAGE - HMO) Jt Goodrich [id number] Jt Goodrich Notes Date Note Type Note Provider Name and Address Organization Details Recorded Time 5 text/html ROS as noted in the HPI 69 yo M here for routine evaluationmoved from [place] to see E[facility] at [facility] q 6 months gets nasal spray, loratadinenasal congestionno allergy testing rare nosebleedsoccasional sinus infection HUY MAHAN MD [address] [place] [address], [phone], [facility] - [facility] 10/29/2024 08:32:34 5 text/html ROS as noted in the HPI [...] that side becomes blocked. HUY MAHAN MD [address] [place] [address],[address], [address], [facility] - [facility] 05/01/2025 14:00:04
--- OUTSIDE RECORDS SUMMARY | 2025-06-15 19:44 | XMS_ITS | Clinical Summary ---
Author Organization [facility] Address [address] [place] [address] Care Team Providers Care Concessions Manager Name Role Phone JolieAnais keenan Arcelia UPTON Primary Care Provider [phone] Allergies No known active allergies Social History Tobacco Use Types Packs/Day Years Used Date Smoking Tobacco: Never Assessed Sex and Gender Information Value Date Recorded Sex Assigned at Not on file Legal Sex Male 1:30 PM EDT Gender Identity Not on file Sexual Orientation Not on file Plan of Treatment Health Maintenance Due Date Last Done Comments Advance Care Planning 1955 Hepatitis C Virus Screening 1955 DTaP/Tdap/Td Vaccines (1 - Tdap) 1974 Colonoscopy 02/19/2000 Pneumococcal Vaccines 50+ (1 of 1 - PCV) 2005 RSV Vaccine 50 years and old er and Patients (1 - Risk 50-74 years 1-dose series) 2005 Zoster (Shingles) Vaccine (1 of 2) 2005 Influenza Vaccine 02/24/2025 COVID-19 Vaccine (1 - 2023-2 5 season) 2025 Hepatitis B Vaccines Aged Out No long er eligible based on patient's age to complete this topic [place] [address] [place] [address] Care Teams Concessions Manager Relationship Specialty Start Date End Date Anais Dave APRN [address] [facility] [address] [place] [address] PCP - General 03/11/16
== END 2025-06-15 15:34 | disposition home or self-care (01) ==
LOC: HO.HMCH 14:18
DX: F41.9 Anxiety disorder, unspecified (principal); F32.A Depression, unspecified; I10 Essential (primary) hypertension; N40.0 Benign prostatic hyperplasia without lower urinary tract symptoms; G47.33 Obstructive sleep apnea (adult) (pediatric); R20.0 Anesthesia of skin; R20.2 Paresthesia of skin; E66.9 Obesity, unspecified; K21.9 Gastro-esophageal reflux disease without esophagitis

== ENCOUNTER → 2025-06-15 14:17 | Outpatient (BNVA) | payer MEDICARE, MEDICAID, SELFPAY | DX: N40.0 Benign prostatic hyperplasia without lower urinary tract symptoms (principal); R20.0 Anesthesia of skin; R20.2 Paresthesia of skin; G47.33 Obstructive sleep apnea (adult) (pediatric); E66.9 Obesity, unspecified; K21.9 Gastro-esophageal reflux disease without esophagitis; F32.A Depression, unspecified; F41.9 Anxiety disorder, unspecified; Z13.31 Encounter for screening for depression | CPT/HCPCS: 96127; 99212 ==